=== PATIENT | female | born 1945 | race African-American/Black ===

== ENCOUNTER 2018-04-23 13:02 | Emergency (ER) | payer OTHER, MEDICAID ==
[~2018-04-23] VITALS: Ht 165.1 cm; Wt 84.4 kg
[~2018-04-23 13:02] MED LIST: BENA20TA3; DOCU-138 PO; LOV30 SQ; MUPI15CR13 TP; VERA120T20 PO; [UNRECOGNIZED DRUG - CODE] PO
[2018-04-23] MEDS ORDERED: SODIUM CHLORIDE 0.9% 1,000 ML IV ONE (13:51)
[2018-04-23] MEDS ORDERED: ONDANSETRON HCL 4MG/2ML VIAL IV STA (13:51)
[2018-04-23] MEDS ORDERED: MORPHINE SULFATE 4 MG/ML CPJ (NOT FOR IM USE) IV STA (13:51)
[2018-04-23 14:42] LABS: BASOPHILS % 0.7 % (0.0-2.0); EOSINOPHILS % 1.3 % (0.0-5.0); HEMATOCRIT. 38.5 % (36.0-48.0); LYMPHOCYTES % 34.6 % (20.0-50.0); MEAN PLATELET VOLUME 9.6 fl (7.4-10.4); MONOCYTES % 9.5 % (2.0-8.0); NEUTROPHILS % 53.9 % (40.0-76.0); PLATELET 208 x1000/uL (130-400); RED CELL DISTRIBUTION WIDTH 13.7 % (11.6-14.6)
[2018-04-23 14:49] LABS: CHLORIDE 106 mEq/L (98-107)
[2018-04-23 14:50] LABS: PARTIAL THROMBOPLASTIN TIME 27.8 sec (23.4-31.0); PROTHROMBIN TIME 10.9 sec (9.4-11.6)
[2018-04-23] MEDS ORDERED: DIATR MEGLU/DIATRIZOATE SOLN 30ML ONE (15:08)
[2018-04-23 15:38] LABS: CLARITY URINE CLEAR (CLEAR); COLOR URINE YELLOW (YELLOW); KETONES URINE NEGATIVE (NEGATIVE); LEUKOCYTE ESTERASE URINE NEGATIVE (NEGATIVE); NITRITE URINE NEGATIVE (NEGATIVE); OCCULT BLOOD URINE NEGATIVE (NEGATIVE); PROTEIN URINE NEGATIVE (NEGATIVE); SPECIFIC GRAVITY URINE 1.013 (1.005-1.030); UROBILINOGEN URINE 0.2 E.U./dL (0.2-1.0)
[2018-04-23] MEDS ORDERED: MORPHINE SULFATE 4 MG/ML CPJ (NOT FOR IM USE) IV ONE (17:00)
[2018-04-23] MEDS ORDERED: IOHEXOL-300 100 ML BOTTLE ONE (18:09)
[2018-04-23 19:33] VITALS: BP 139/70
== END 2018-04-23 19:36 | disposition home or self-care (01) ==
LOC: ER 13:02
DX: K56.41 Fecal impaction (principal); R00.1 Bradycardia, unspecified; D25.9 Leiomyoma of uterus, unspecified; K76.89 Other specified diseases of liver; N28.1 Cyst of kidney, acquired; K57.90 Diverticulosis of intestine, part unspecified, without perforation or abscess without bleeding; I10 Essential (primary) hypertension; Z96.643 Presence of artificial hip joint, bilateral
CPT/HCPCS: 36415; 71045; 74177; 80053; 81003; 83690; 85025; 85610; 85730; 86850; 86900; 86901; 93005; 96374; 96375; 96376; 99285; J2270; J2405; J7030; Q9967; Z7610; Q9963

== ENCOUNTER 2018-06-26 15:20 | Emergency (ER) | payer OTHER, MEDICAID ==
[~2018-06-26] VITALS: Ht 167.6 cm; Wt 79.0 kg
[~2018-06-26 15:20] MED LIST changes: +BENA20TA10; -BENA20TA3
[2018-06-26] MEDS ORDERED: KETOROLAC 60MG/2ML VIAL IM ONE (20:30)
[2018-06-26 21:49] VITALS: BP 135/78
== END 2018-06-26 21:51 | disposition home or self-care (01) ==
LOC: ER 15:20
DX: M25.531 Pain in right wrist (principal); I10 Essential (primary) hypertension; Z79.899 Other long term (current) drug therapy; Z98.890 Other specified postprocedural states
CPT/HCPCS: 73110; 96372; 99284; J1885; Z7610